=== PATIENT | female | born 1960 | race Caucasian/White ===

== ENCOUNTER → 2016-10-08 | Outpatient (CLI) | payer OTHER ==
[2014-12-09 09:07] VITALS: BP 149/89
[~2016-10-08] MED LIST: FLAGYL PO; FOLIC ACID1 MG PO; IMODIUM 2MG CAPS2 MG PO; LUVOX100 MG PO; METHOTREXATE2.5 M1 PO; NORCO 325 MG-51 TAB PO; SIMETHICONE80 MG PO; TREXALL7.5 MG PO; VENTOLIN0.09 MG IH; XELJANZ5 MG PO
== END ==
LOC: LAB 09:30
DX: R30.0 Dysuria (principal)

== ENCOUNTER → 2019-12-04 | Outpatient (CLI) | payer OTHER ==
[2014-12-09 09:07] VITALS: BP 149/89
== END ==
LOC: RAD 09:22
DX: M25.572 Pain in left ankle and joints of left foot (principal)

== ENCOUNTER → 2021-10-07 | Outpatient (CLI) | payer OTHER ==
[2021-10-07 13:24] LABS: BASO # 0.03 K/mm3 (0.02-0.10); EOS # 0.12 K/mm3 (0.04-0.40); EOS % 3.2 % (1.0-5.0); HEMATOCRIT 42.6 % (37.0-47.0); HEMOGLOBIN 14.2 g/dL (12.5-16.0); LYMPH# 0.93 K/mm3 (1.50-4.00); MEAN CELL VOLUME 88 fl (78-100); MEAN CORPUSCULAR HEMOGLOBIN 29 pg (27-31); MEAN CORPUSCULAR HGB CONC 33 g/dL (33-37); MEAN PLATELET VOLUME 10.6 fl (7.4-10.4); NEU # 2.31 K/mm3 (1.40-6.50); PLATELET COUNT 252 K/mm3 (130-400); RED BLOOD COUNT 4.85 M/mm3 (4.10-5.30); RED CELL DISTRIBUTION WIDTH 14.3 % (11.5-14.5); WHITE BLOOD COUNT 3.7 K/mm3 (4.8-10.8)
[2021-10-07 13:30] LABS: ALBUMIN 3.9 g/dL (3.5-5.0)
[2021-10-07 13:32] LABS: CALCIUM 9.5 mg/dL (8.3-10.5)
[2021-10-07 13:33] LABS: TOTAL PROTEIN 7.3 g/dL (6.4-8.3)
[2021-10-07 13:35] LABS: TOTAL BILIRUBIN 0.5 mg/dL (0.2-1.2)
[2021-10-07 13:39] LABS: MAGNESIUM 1.96 mg/dL (1.60-2.60)
[2021-10-07 14:48] LABS: URINE APPEARANCE HAZY; URINE BILIRUBIN NEGATIVE (NEGATIVE); URINE BLOOD TRACE (NEGATIVE); URINE COLOR YELLOW; URINE GLUCOSE NEGATIVE (NEGATIVE); URINE KETONE NEGATIVE (NEGATIVE); URINE LEUKOCYTE ESTERASE TRACE (NEGATIVE); URINE NITRATE NEGATIVE (NEGATIVE); URINE PROTEIN(semi-quant) TRACE (NEGATIVE); URINE UROBILINOGEN NORMAL (NORMAL)
[2021-10-07 14:50] LABS: URINE MUCUS PRESENT (NOT PRESENT)
== END ==
LOC: LAB 13:01
PROVIDERS: Nurse Practitioner Family
DX: R10.9 Unspecified abdominal pain (principal)

== ENCOUNTER → 2021-10-08 | Outpatient (CLI) | payer OTHER | LOC: LAB 10:36 | DX: R10.9 Unspecified abdominal pain (principal) ==

== ENCOUNTER → 2021-11-11 | Outpatient (CLI) | payer OTHER ==
[2021-11-12 13:33] LABS: HEPATITIS C ANTIBODY Negative (Negative)
[2021-11-12 16:48] LABS: TB GOLD INTERPRETATION.TB GOLD Negative (Negative)
== END ==
LOC: LAB 09:24
PROVIDERS: Student in an Organized Health Care Education/Training Program
DX: Z01.812 Encounter for preprocedural laboratory examination (principal)

== ENCOUNTER → 2021-11-29 | Outpatient (CLI) | payer OTHER | LOC: RAD 12:44 | DX: J98.11 Atelectasis (principal) ==

== ENCOUNTER → 2022-05-09 | Day surgery (SDC) | payer OTHER | LOC: MSO 09:45 | DX: Z12.11 Encounter for screening for malignant neoplasm of colon (principal); K57.30 Diverticulosis of large intestine without perforation or abscess without bleeding | CPT/HCPCS: 00812; J2704; J7120 ==

== ENCOUNTER → 2022-07-11 | Outpatient (CLI) | payer OTHER ==
[2022-07-11 09:44] LABS: POTASSIUM 4.3 mmol/L (3.5-5.1)
[2022-07-11 09:46] LABS: CALCIUM 9.6 mg/dL (8.3-10.5)
== END ==
LOC: LAB 09:21
PROVIDERS: Internal Medicine
DX: M06.9 Rheumatoid arthritis, unspecified (principal)

== ENCOUNTER → 2023-04-03 | Outpatient (CLI) | payer OTHER | LOC: MAMMO 13:42 | DX: Z12.31 Encounter for screening mammogram for malignant neoplasm of breast (principal); M85.89 Other specified disorders of bone density and structure, multiple sites ==

== ENCOUNTER → 2023-07-07 | Outpatient (CLI) | payer OTHER ==
[2023-07-07 11:38] LABS: BASO # 0.08 K/mm3 (0.02-0.10); EOS # 0.32 K/mm3 (0.04-0.40); EOS % 4.5 % (1.0-5.0); HEMATOCRIT 40.2 % (37.0-47.0); HEMOGLOBIN 13.5 g/dL (12.5-16.0); LYMPH# 1.69 K/mm3 (1.50-4.00); MEAN CELL VOLUME 89 fl (78-100); MEAN CORPUSCULAR HEMOGLOBIN 30 pg (27-31); MEAN CORPUSCULAR HGB CONC 34 g/dL (33-37); MEAN PLATELET VOLUME 10.4 fl (7.4-10.4); NEU # 4.42 K/mm3 (1.40-6.50); PLATELET COUNT 270 K/mm3 (130-400); RED BLOOD COUNT 4.52 M/mm3 (4.10-5.30); RED CELL DISTRIBUTION WIDTH 13.8 % (11.5-14.5); WHITE BLOOD COUNT 7.1 K/mm3 (4.8-10.8)
[2023-07-07 11:46] LABS: PH-URINE 5.5 (5.0 - 8.0); URINE APPEARANCE CLEAR (CLEAR); URINE BILIRUBIN NEGATIVE (NEGATIVE); URINE BLOOD NEGATIVE (NEGATIVE); URINE COLOR YELLOW (YELLOW); URINE GLUCOSE NEGATIVE (NEGATIVE); URINE KETONE NEGATIVE (NEGATIVE); URINE LEUKOCYTE ESTERASE NEGATIVE (NEGATIVE); URINE NITRATE NEGATIVE (NEGATIVE); URINE PROTEIN(semi-quant) NEGATIVE (NEGATIVE)
[2023-07-07 11:47] LABS: ALBUMIN 4.5 g/dL (3.4-4.8)
[2023-07-07 11:48] LABS: CALCIUM 10.3 mg/dL (8.3-10.5)
[2023-07-07 11:49] LABS: TOTAL PROTEIN 8.3 g/dL (6.2-8.1)
[2023-07-07 11:50] LABS: URINE WBC 0-1 /hpf (0-3)
[2023-07-07 11:51] LABS: TOTAL BILIRUBIN 0.5 mg/dL (0.2-1.2)
[2023-07-07 11:56] LABS: MAGNESIUM 2.16 mg/dL (1.60-2.60)
== END ==
LOC: LAB 11:14
PROVIDERS: Internal Medicine
DX: E06.3 Autoimmune thyroiditis (principal); I12.9 Hypertensive chronic kidney disease with stage 1 through stage 4 chronic kidney disease, or unspecified chronic kidney disease; N18.30 Chronic kidney disease, stage 3 unspecified; K90.9 Intestinal malabsorption, unspecified; E78.2 Mixed hyperlipidemia; R73.9 Hyperglycemia, unspecified